=== PATIENT | male | born 1975 | race African-American/Black ===

== ENCOUNTER 2023-02-28 20:35 | Emergency (ER) | payer OTHER ==
[2023-02-28 20:42] VITALS: BP 131/77; PULSE 82; RESP 18; TEMP 98.3; BMI 27.3
[2023-02-28] MEDS ORDERED: IBUPROFEN 400 MG TABLET (FP) PO ONE ×2 (21:55→22:00)
== END 2023-02-28 22:34 | disposition home or self-care (01) ==
LOC: JERFT 20:35 → JER 20:35 → JERFT 22:34
DX: M79.644 Pain in right finger(s) (principal); W23.0XXA Caught, crushed, jammed, or pinched between moving objects, initial encounter; Y93.01 Activity, walking, marching and hiking
CPT/HCPCS: 73140-TC-RT-FY; 99283-25

== ENCOUNTER 2023-03-17 19:45 | Emergency (ER) | payer OTHER ==
[2023-03-17 19:55] VITALS: BP 122/63; PULSE 93; RESP 18; TEMP 98.3; BMI 27.3
[2023-03-17] MEDS ORDERED: ACETAMINOPHEN 500 MG TABLET (FP) PO ONE (22:38)
[2023-03-17] MEDS ORDERED: ACETAMINOPHEN 500 MG TABLET (FP) ONE (22:40)
== END 2023-03-18 00:03 | disposition home or self-care (01) ==
LOC: JERFT 19:45
DX: M25.561 Pain in right knee (principal); M25.562 Pain in left knee; R22.43 Localized swelling, mass and lump, lower limb, bilateral
CPT/HCPCS: 73560-TC-LT-FY; 73560-TC-RT-FY; 99283-25

== ENCOUNTER 2023-11-03 23:26 | Emergency (ER) | payer OTHER ==
[2023-11-03 23:33] VITALS: BP 145/82; PULSE 85; RESP 18; TEMP 99; BMI 26.6
[2023-11-04] MEDS ORDERED: ACETAMINOPHEN 325 MG TABLET (FP) ONE
[2023-11-04] MEDS ORDERED: DIPHTH,PERTUSS(ACELL),TET 0.5 ML DISP.SYRIN IM ONE
[2023-11-04] MEDS: DIPHTH,PERTUSS(ACELL),TET 0.5 ML DISP.SYRIN IM ONE (00:05)
[2023-11-04] MEDS: ACETAMINOPHEN 500 MG TABLET (FP) PO ONE (00:07)
[2023-11-04] MEDS ORDERED: BACITRACIN ZINC 15 GM TUBE TOPICAL OINTMENT ONE (00:26)
[2023-11-04] MEDS: BACITRACIN ZINC 15 GM TUBE TOPICAL OINTMENT TP STA (00:34)
[2023-11-04] MEDS ORDERED: KETOROLAC TROMETHAMINE 15 MG/ML VIAL ONE (00:53)
[2023-11-04] MEDS: KETOROLAC TROMETHAMINE 15 MG/ML VIAL IM ONE (00:56)
[2023-11-04] MEDS ORDERED: BACITRACIN ZINC 15 GM TUBE TOPICAL OINTMENT TP SCH (10:00)
== END 2023-11-04 00:58 | disposition home or self-care (01) ==
LOC: JER 23:26
PROC: 3E0233Z Introduction of Anti-inflammatory into Muscle, Percutaneous Approach (ICD-10-PCS; principal; 2023-11-04)
PROC: 3E0234Z Introduction of Serum, Toxoid and Vaccine into Muscle, Percutaneous Approach (ICD-10-PCS; 2023-11-04)
DX: S90.512A Abrasion, left ankle, initial encounter (principal); S40.212A Abrasion of left shoulder, initial encounter; S80.212A Abrasion, left knee, initial encounter; W18.39XA Other fall on same level, initial encounter; Z23 Encounter for immunization
CPT/HCPCS: 73030-TC-LT-FY; 73610-TC-LT-FY; 73630-TC-LT; 90471; 90715; 96372; 99284-25